=== PATIENT | male | born 1980 | race Caucasian/White ===

== ENCOUNTER 2019-06-21 22:14 | Emergency (ER) | payer MEDICAID, OTHER, SELFPAY ==
[~2019-06-21] VITALS: Ht 185.4 cm; Wt 105.0 kg
[2019-06-21 22:16] VITALS: BP 122/80
== END 2019-06-21 23:10 | disposition left against medical advice (07) ==
LOC: ED 23:04
DX: F10.120 Alcohol abuse with intoxication, uncomplicated (principal); Y90.9 Presence of alcohol in blood, level not specified
CPT/HCPCS: 99283

== ENCOUNTER 2019-06-22 03:01 | Emergency (ER) | payer MEDICAID ==
[~2019-06-22] VITALS: Ht 185.4 cm; Wt 101.4 kg
[2019-06-22 05:40] VITALS: BP 114/72
== END 2019-06-22 05:43 | disposition home or self-care (01) ==
LOC: ED 03:29
DX: F10.120 Alcohol abuse with intoxication, uncomplicated (principal); Z72.9 Problem related to lifestyle, unspecified
CPT/HCPCS: 99283

== ENCOUNTER 2019-11-17 18:37 | Emergency (ER) | payer MEDICAID ==
[~2019-11-17] VITALS: Ht 182.9 cm; Wt 90.9 kg
--- NOTE | 2019-11-17 18:45 | NUR ---
PT SHARLENE VANG FROM [place]. PER EMS PT WALKED INTO [place] C/O SI, TOLD THEM HE WANTED TO "BLOW MY BRAINS OUT". PT WAS PLACED ON A LEGAL HOLD. THEN PT C/O CHEST PAIN SO EMS WAS CALLED. PT BECAME AGITATED/AGGRESSIVE AT TIMES WITH STAFF AT [place] AND WITH EMS. PT A&OX4 BUT DOESN'T WANT TO ANSWER ALL QUESTIONS. VSS PER EMS. ALL BELONGINGS PLACED IN LOCKER AND ROOM STRIPPED. POC RV'WD WITH PT. SITTER OUTSIDE ROOM.
[2019-11-17 18:52] VITALS: BP 147/95
--- NOTE | 2019-11-17 19:15 | NUR ---
ERP AT NOW.
--- NOTE | 2019-11-17 19:34 | NUR ---
XR AT BS.
[2019-11-17 19:47] LABS: ALBUMIN 3.7 g/dL (3.4-5.0); ANION GAP 7 mmol/L (5-15); CALCIUM 7.7 mg/dL (8.5-10.1); CHLORIDE 109 mmol/L (98-107)
--- NOTE | 2019-11-17 19:48 | NUR ---
PT LYING ON HIS SIDE IN [place], CALM AT THIS TIME.
[2019-11-17 19:50] LABS: BASOPHILS # (AUTO) 0.04 x10^3/uL (0-0.1); BASOPHILS % (AUTO) 1 % (0-1); EOSINOPHILS # (AUTO) 0.08 x10^3/uL (0-0.4); EOSINOPHILS % (AUTO) 1 % (1-7); LYMPHOCYTES # (AUTO) 2.03 x10^3/uL (1-3.4); LYMPHOCYTES % (AUTO) 30 % (22-44); MD NO; MEAN CORPUSCULAR HEMOGLOBIN 26.4 pg (27.5-34.5); MEAN CORPUSCULAR HGB CONC 32.1 g/dL (33.2-36.2); MEAN CORPUSCULAR VOLUME 82.2 fL (81-97); MEAN PLATELET VOLUME 8.1 fL (7.4-10.4); MONOCYTES # (AUTO) 0.46 x10^3/uL (0.2-0.8); MONOCYTES % (AUTO) 7 % (2-9); NEUTROPHILS # (AUTO) 4.24 x10^3/uL (1.8-6.8); NEUTROPHILS % (AUTO) 62 % (42-75); PLATELET COUNT 276 x10^3/uL (130-400); RED BLOOD COUNT 6.46 x10^6/uL (4.38-5.82); RED CELL DISTRIBUTION WIDTH 13.7 % (9.4-14.8)
[2019-11-17 19:52] LABS: ALANINE AMINOTRANSFERASE 42 U/L (12-78); ALKALINE PHOSPHATASE 80 U/L (45-117); BILIRUBIN,TOTAL 0.3 mg/dL (0.2-1.0); CREATININE 1.39 mg/dL (0.7-1.3); SALICYLATE LEVEL < 1.7 mg/dL (2.8-20.0); TOTAL PROTEIN 7.6 g/dL (6.4-8.2); TROPONIN I < 0.015 ng/mL (0.000-0.045)
--- NOTE | 2019-11-17 20:13 | NUR ---
spoke to Moe on 3E pt needs a UDS and prior auth before being accepted
[2019-11-17 21:31] LABS: AMPHETAMINE SCREEN, URINE Negative (Negative); BARBITURATE SCREEN, URINE Negative (Negative); BENZODIAZEPINE SCREEN, URINE Negative (Negative); CANNABINOID SCREEN, URINE Negative (Negative); COCAINE SCREEN, URINE Negative (Negative); METHADONE SCREEN, URINE Negative (Negative); OPIATE SCREEN, URINE Positive (Negative)
--- NOTE | 2019-11-17 21:54 | NUR ---
REPEAT BREATHALYZER DONE. MORE SNACKS PROVIDED TO PT. NO OTHER NEEDS AT THIS TIME.
[2019-11-17] MEDS ORDERED: ATOM60CA PO (22:58)
[2019-11-17] MEDS ORDERED: ALPR1TAB2 PO (22:58)
[2019-11-17] MEDS ORDERED: ESCI20TA10 PO (22:58)
[2019-11-17] MEDS ORDERED: HYDR1TAB13 PO (22:58)
[2019-11-17] MEDS ORDERED: GABA600T7 PO (22:58)
[2019-11-17] MEDS ORDERED: CLON0.1T22 PO (22:58)
== END 2019-11-18 07:13 | disposition other institution (70) ==
LOC: ED 19:56 → UNDOADMIN 21:00 → 3E 21:00 → ED 11-18 07:13
DX: F10.129 Alcohol abuse with intoxication, unspecified (principal); F32.9 Major depressive disorder, single episode, unspecified
CPT/HCPCS: 36415; 71045; 80053; 80307; 84484; 85025; 93005; 99284

== ENCOUNTER 2019-11-17 21:54 | Inpatient (IN) | payer MEDICAID ==
[~2019-11-17] VITALS: Ht 182.9 cm; Wt 98.1 kg
[2019-11-17] MEDS ORDERED: POLYETHYLENE GLYCOL 17 GM PACKET PO PRN (22:00)
[2019-11-17] MEDS ORDERED: DOCUSATE 100 MG CAPSULE PO PRN (22:00)
[2019-11-17] MEDS ORDERED: ONDANSETRON ODT 4 MG PO PRN (22:00)
[2019-11-17] MEDS ORDERED: BISACODYL 10 MG SUPP PR PRN (22:00)
[2019-11-17] MEDS ORDERED: ALPR1TAB2 PO (22:58)
[2019-11-17] MEDS ORDERED: CLON0.1T22 PO (22:58)
[2019-11-17] MEDS ORDERED: ATOM60CA PO (22:58)
[2019-11-17] MEDS ORDERED: HYDR1TAB13 PO (22:58)
[2019-11-17] MEDS ORDERED: ESCI20TA10 PO (22:58)
[2019-11-17] MEDS ORDERED: GABA600T7 PO (22:58)
[2019-11-18] MEDS: LORazepam 1MG TABLET PO PRN ×4 (00:06→20:03)
[2019-11-18 00:34] VITALS: BP 154/76
[2019-11-18] MEDS ORDERED: TRAZODONE 100MG TABLET PO PRN (02:30)
[2019-11-18 06:24] LABS: ANION GAP 7 mmol/L (5-15); CALCIUM 8.2 mg/dL (8.5-10.1); CHLORIDE 107 mmol/L (98-107)
[2019-11-18 06:35] LABS: CHOL/HDL RATIO 4.3; CHOLESTEROL, TOTAL 177 mg/dL (140-239); CREATININE 1.31 mg/dL (0.7-1.3); FREE T4 (FREE THYROXINE) 0.86 ng/dL (0.76-1.46); HDL CHOL % 23 % (26-37); HDL CHOLESTEROL (DIRECT) 41 mg/dL (40-60); LDL CHOLESTEROL,CALCULATED 73 mg/dL (54-169); LDL/HDL RATIO 1.8 (0.5-3.0); TRIGLYCERIDES 316 mg/dL (50-200); VLDL CHOLESTEROL 63 mg/dL (0-25)
[2019-11-18 07:07] VITALS: BP 122/81
[2019-11-18] MEDS ORDERED: LORazepam 1MG TABLET PO ONE (07:30)
[2019-11-18] MEDS: THIAMINE 100MG TABLET PO SCH (09:05)
[2019-11-18] MEDS: FOLIC ACID 1 MG TABLET PO SCH (09:05)
[2019-11-18] MEDS: NICOTINE 21 MG/24 HR PATCH.TD24 TD SCH (09:06)
[2019-11-18] MEDS: BUPRENORPHINE/NALOXONE 2-0.5MG SL SCH ×3 (14:18→22:11)
[2019-11-18] MEDS: ESCITALOPRAM 10MG TABLET PO SCH (14:18)
[2019-11-18] MEDS: ACAMPROSATE 333 MG TABLET.DR PO SCH ×2 (16:21→20:02)
[2019-11-18 19:05] VITALS: BP 164/97
[2019-11-18] MEDS: BUSPIRONE 10 MG TABLET PO SCH (20:02)
[2019-11-18] MEDS: GABAPENTIN 300 MG CAPSULE PO SCH (20:02)
[2019-11-18 22:39] VITALS: BP 150/80
[2019-11-19 07:47] VITALS: BP 120/73
[2019-11-19] MEDS: ACAMPROSATE 333 MG TABLET.DR PO SCH ×3 (08:45→20:26)
[2019-11-19] MEDS: BUSPIRONE 10 MG TABLET PO SCH ×2 (08:45→20:26)
[2019-11-19] MEDS: ESCITALOPRAM 10MG TABLET PO SCH (08:45)
[2019-11-19] MEDS: THIAMINE 100MG TABLET PO SCH (08:45)
[2019-11-19] MEDS: NICOTINE 21 MG/24 HR PATCH.TD24 TD SCH (08:46)
[2019-11-19] MEDS: FOLIC ACID 1 MG TABLET PO SCH (08:46)
[2019-11-19] MEDS: BUPRENORPHINE/NALOXONE 2-0.5MG SL SCH ×3 (08:46→21:29)
[2019-11-19 10:49] LABS: MICROSCOPIC NOT IND
[2019-11-19] MEDS: LORazepam 1MG TABLET PO PRN ×3 (10:54→20:45)
[2019-11-19 11:01] LABS: CULTURE INDICATED? NO
[2019-11-19] MEDS ORDERED: BUPRENORPHINE/NALOXONE 2-0.5MG SL SCH (18:00)
[2019-11-19 19:30] VITALS: BP 154/86
[2019-11-19] MEDS: GABAPENTIN 300 MG CAPSULE PO SCH (20:27)
[2019-11-20 07:38] VITALS: BP 112/65
[2019-11-20] MEDS: NICOTINE 21 MG/24 HR PATCH.TD24 TD SCH (08:56)
[2019-11-20] MEDS: FOLIC ACID 1 MG TABLET PO SCH (08:56)
[2019-11-20] MEDS: THIAMINE 100MG TABLET PO SCH (08:56)
[2019-11-20] MEDS: ACAMPROSATE 333 MG TABLET.DR PO SCH ×3 (08:57→20:07)
[2019-11-20] MEDS: BUSPIRONE 10 MG TABLET PO SCH ×2 (08:58→20:07)
[2019-11-20] MEDS: ESCITALOPRAM 10MG TABLET PO SCH (08:58)
[2019-11-20] MEDS: LORazepam 1MG TABLET PO PRN ×2 (09:05→18:33)
[2019-11-20] MEDS ORDERED: BUPRENORPHINE/NALOXONE 2-0.5MG SL SCH (10:30)
[2019-11-20] MEDS: NICOTINE GUM 2 MG BC PRN ×3 (15:11→20:54)
[2019-11-20] MEDS: BUPRENORPHINE/NALOXONE 2-0.5MG SL SCH ×2 (18:16→20:07)
[2019-11-20 20:05] VITALS: BP_SYST 171; BP_DIAS 74; BP_DIAS 80
[2019-11-20] MEDS: ACETAMINOPHEN 325 MG TABLET PO PRN (20:07)
[2019-11-20] MEDS: GABAPENTIN 300 MG CAPSULE PO SCH (20:07)
[2019-11-21] MEDS: LORazepam 1MG TABLET PO PRN ×4 (01:15→19:48)
[2019-11-21] MEDS: NICOTINE GUM 2 MG BC PRN ×5 (04:43→19:25)
[2019-11-21 07:50] VITALS: BP 128/75
[2019-11-21] MEDS: FOLIC ACID 1 MG TABLET PO SCH (08:36)
[2019-11-21] MEDS: BUSPIRONE 10 MG TABLET PO SCH ×2 (08:36→19:48)
[2019-11-21] MEDS: ESCITALOPRAM 10MG TABLET PO SCH (08:36)
[2019-11-21] MEDS: ACAMPROSATE 333 MG TABLET.DR PO SCH ×3 (08:36→19:49)
[2019-11-21] MEDS: BUPRENORPHINE/NALOXONE 2-0.5MG SL SCH (08:37)
[2019-11-21] MEDS: THIAMINE 100MG TABLET PO SCH (08:37)
[2019-11-21] MEDS: ACETAMINOPHEN 325 MG TABLET PO PRN (19:48)
[2019-11-21] MEDS: GABAPENTIN 300 MG CAPSULE PO SCH (19:48)
[2019-11-21 19:57] VITALS: BP 171/124
[2019-11-21] MEDS ORDERED: METHOCARBAMOL 500 MG TABLET PO ONE (21:00)
[2019-11-22] MEDS: NICOTINE GUM 2 MG BC PRN ×6 (00:28→23:28)
[2019-11-22 00:30] VITALS: BP 142/93
[2019-11-22 07:23] VITALS: BP 126/81
[2019-11-22] MEDS: BUSPIRONE 10 MG TABLET PO SCH ×2 (08:31→20:13)
[2019-11-22] MEDS: FOLIC ACID 1 MG TABLET PO SCH (08:31)
[2019-11-22] MEDS: ACAMPROSATE 333 MG TABLET.DR PO SCH ×3 (08:31→20:12)
[2019-11-22] MEDS: ESCITALOPRAM 10MG TABLET PO SCH (08:31)
[2019-11-22] MEDS: THIAMINE 100MG TABLET PO SCH (08:31)
[2019-11-22] MEDS ORDERED: BUPRENORPHINE/NALOXONE 2-0.5MG SL SCH (09:00)
[2019-11-22] MEDS: LORazepam 1MG TABLET PO PRN ×3 (09:46→20:12)
[2019-11-22] MEDS ORDERED: ACAM333T7 PO (13:31)
[2019-11-22] MEDS ORDERED: ESCI10TA PO (13:31)
[2019-11-22] MEDS ORDERED: CLON0.1T22 PO (13:31)
[2019-11-22] MEDS ORDERED: GABA300C10 PO (13:31)
[2019-11-22] MEDS ORDERED: BUSP10TA PO (13:31)
[2019-11-22] MEDS ORDERED: BUPRENORPHINE/NALOXONE 2-0.5MG SL ONE (18:00)
[2019-11-22 19:36] VITALS: BP 167/85
[2019-11-22] MEDS: GABAPENTIN 300 MG CAPSULE PO SCH (20:13)
[2019-11-23 07:25] VITALS: BP 136/86
[2019-11-23] MEDS: ACAMPROSATE 333 MG TABLET.DR PO SCH ×3 (08:57→20:19)
[2019-11-23] MEDS: BUSPIRONE 10 MG TABLET PO SCH ×2 (08:57→20:19)
[2019-11-23] MEDS: FOLIC ACID 1 MG TABLET PO SCH (08:57)
[2019-11-23] MEDS: LORazepam 1MG TABLET PO PRN ×4 (08:58→20:46)
[2019-11-23] MEDS: ESCITALOPRAM 10MG TABLET PO SCH (08:58)
[2019-11-23] MEDS: THIAMINE 100MG TABLET PO SCH (08:58)
[2019-11-23] MEDS: NICOTINE GUM 2 MG BC PRN ×4 (08:59→20:20)
[2019-11-23] MEDS: BUPROPION SR 150 MG TABLET PO SCH (10:59)
[2019-11-23 19:21] VITALS: BP 138/80
[2019-11-23] MEDS: GABAPENTIN 300 MG CAPSULE PO SCH (20:19)
[2019-11-23] MEDS ORDERED: METHOCARBAMOL 500 MG TABLET PO ONE (20:30)
[2019-11-24 07:15] VITALS: BP 135/83
[2019-11-24] MEDS: ESCITALOPRAM 10MG TABLET PO SCH (08:36)
[2019-11-24] MEDS: FOLIC ACID 1 MG TABLET PO SCH (08:36)
[2019-11-24] MEDS: THIAMINE 100MG TABLET PO SCH (08:36)
[2019-11-24] MEDS: BUPROPION SR 150 MG TABLET PO SCH (08:36)
[2019-11-24] MEDS: BUSPIRONE 10 MG TABLET PO SCH ×2 (08:36→19:45)
[2019-11-24] MEDS: ACAMPROSATE 333 MG TABLET.DR PO SCH ×3 (08:36→19:46)
[2019-11-24] MEDS: LORazepam 1MG TABLET PO PRN ×3 (08:45→19:52)
[2019-11-24] MEDS: ACETAMINOPHEN 325 MG TABLET PO PRN (08:45)
[2019-11-24] MEDS: NICOTINE GUM 2 MG BC PRN ×5 (09:03→19:45)
[2019-11-24] MEDS ORDERED: BUPRENORPHINE/NALOXONE 2-0.5MG SL ONE (12:30)
[2019-11-24 19:37] VITALS: BP 114/74
[2019-11-24] MEDS: GABAPENTIN 300 MG CAPSULE PO SCH (19:45)
== END 2019-11-24 20:27 | disposition home or self-care (01) | DRG 885 ==
LOC: 3E 23:28
PROVIDERS: ADMIT Psychiatry & Neurology Psychosomatic Medicine; ATTEND Psychiatry & Neurology Psychosomatic Medicine
DX: F33.2 Major depressive disorder, recurrent severe without psychotic features (principal); R45.851 Suicidal ideations; F10.230 Alcohol dependence with withdrawal, uncomplicated; F11.20 Opioid dependence, uncomplicated; K59.00 Constipation, unspecified; M54.9 Dorsalgia, unspecified; G89.29 Other chronic pain; G47.00 Insomnia, unspecified; K21.9 Gastro-esophageal reflux disease without esophagitis; F17.210 Nicotine dependence, cigarettes, uncomplicated; F41.1 Generalized anxiety disorder; I10 Essential (primary) hypertension; F98.8 Other specified behavioral and emotional disorders with onset usually occurring in childhood and adolescence; Z88.2 Allergy status to sulfonamides; Z59.0 Homelessness; Z91.19 Patient's noncompliance with other medical treatment and regimen; Z79.899 Other long term (current) drug therapy
CPT/HCPCS: J0572 ×6

== ENCOUNTER 2019-12-13 09:49 | Emergency (ER) | payer MEDICAID ==
[~2019-12-13] VITALS: Ht 185.4 cm; Wt 99.1 kg
[~2019-12-13 09:49] MED LIST: ACAM333T7 PO; ALPR1TAB2 PO; ATOM60CA PO; BUSP10TA PO; CLON0.1T22 PO; ESCI10TA PO; ESCI20TA10 PO; GABA300C10 PO; GABA600T7 PO; HYDR1TAB13 PO
--- NOTE | 2019-12-13 10:55 | NUR ---
REPORT GIVEN TO GLENN
--- NOTE | 2019-12-13 10:57 | NUR ---
PT REPORT FROM MATTHEW PENA. PT CARE TO BE ASSUMED. PT AMBULATORY FROM [facility] TO ROOM W/OUT INCIDENT; GAIT STEADY; VOIDED SPECIMEN WAS PROVIDED. BEHAVIORAL HEALTH RN IN ROOM W/ PT FOR EVAL. PT'S FEMALE FRIEND IN ROOM.
[2019-12-13 11:21] LABS: BASOPHILS # (AUTO) 0.04 x10^3/uL (0-0.1); BASOPHILS % (AUTO) 1 % (0-1); EOSINOPHILS # (AUTO) 0.06 x10^3/uL (0-0.4); EOSINOPHILS % (AUTO) 1 % (1-7); LYMPHOCYTES # (AUTO) 1.21 x10^3/uL (1-3.4); LYMPHOCYTES % (AUTO) 26 % (22-44); MD NO; MEAN CORPUSCULAR HEMOGLOBIN 26.4 pg (27.5-34.5); MEAN CORPUSCULAR HGB CONC 32.8 g/dL (33.2-36.2); MEAN CORPUSCULAR VOLUME 80.4 fL (81-97); MEAN PLATELET VOLUME 8.1 fL (7.4-10.4); MONOCYTES # (AUTO) 0.48 x10^3/uL (0.2-0.8); MONOCYTES % (AUTO) 10 % (2-9); NEUTROPHILS # (AUTO) 2.84 x10^3/uL (1.8-6.8); NEUTROPHILS % (AUTO) 61 % (42-75); PLATELET COUNT 289 x10^3/uL (130-400); RED BLOOD COUNT 6.43 x10^6/uL (4.38-5.82); RED CELL DISTRIBUTION WIDTH 14.8 % (9.4-14.8)
[2019-12-13] MEDS ORDERED: hydrOXyzine 50MG TABLET ONE (11:25)
[2019-12-13 11:28] LABS: ALANINE AMINOTRANSFERASE 30 U/L (12-78); ALBUMIN 3.7 g/dL (3.4-5.0); ANION GAP 7 mmol/L (5-15); CHLORIDE 106 mmol/L (98-107); CREATININE 1.55 mg/dL (0.7-1.3)
--- NOTE | 2019-12-13 11:28 | NUR ---
PT BE POSSIBLE VOLUNTARY ADMIT TO UNIT. RESTING QUIETLY ON BED, RESP EVEN & UNLABORED, SPEECH CLEAR, SKIN WNL. PT REPORTS DETOXING FROM ALCOHOL, SI, ANIEXTY, DEPRESSION; "IT'S BEEN GOING ON FOR AWHILE". LAST ALCOHOL INTAKE: LAST NOC - VODKA "A COUPLE PINTS". DAILY ETOH INTAKE. SI "LIKE JUMPING THROUGH A WINDOW" "I'VE BEEN THINKING ABOUT IT EVERY DAY" "FOR 7 DAYS, EVER SINCE I STARTED DRINKING AGAIN" "GOING THROUGH A REALLY HARD TIME, MENTAL HEALTH SPENCER, BECAUSE I WASN'T ON THE RIGHT MEDICATION"
[2019-12-13 11:30] LABS: ALKALINE PHOSPHATASE 74 U/L (45-117); BILIRUBIN,TOTAL 0.7 mg/dL (0.2-1.0); TOTAL PROTEIN 7.6 g/dL (6.4-8.2)
[2019-12-13] MEDS ORDERED: HYDROXYZINE PAMOATE 50MG CAP PO ONE (11:30)
[2019-12-13 11:31] LABS: SALICYLATE LEVEL < 1.7 mg/dL (2.8-20.0)
[2019-12-13 11:33] LABS: MICROSCOPIC NOT IND
[2019-12-13] MEDS ORDERED: OMEP20TA62 PO (11:37)
--- NOTE | 2019-12-13 11:38 | NUR ---
PT REQUESTING NICOTINE PATCH. PROVIDER WILL BE NOTIFIED.
--- NOTE | 2019-12-13 11:39 | NUR ---
HYDROXYZINE 50MG PO GIVEN PER EMAR. PT REQUESTING ATIVAN. INFORMED PT THAT ATIVAN WAS NOT ORDERED. DISCUSSED HYDROXYZINE W/ PT AND GIRLFRIEND. GIRLFRIEND STATES PT IS "FAMILIAR WITH HYDROXYZINE, BUT IS FAMILIAR WITH ATIVAN, SO HE DOESN'T KNOW HOW IT WORKS."
[2019-12-13 11:46] LABS: AMPHETAMINE SCREEN, URINE Negative (Negative); BARBITURATE SCREEN, URINE Negative (Negative); BENZODIAZEPINE SCREEN, URINE Negative (Negative); CANNABINOID SCREEN, URINE Positive (Negative); COCAINE SCREEN, URINE Negative (Negative); METHADONE SCREEN, URINE Negative (Negative); OPIATE SCREEN, URINE Negative (Negative)
--- NOTE | 2019-12-13 12:01 | NUR ---
PT LYING QUIETLY ON BED, RESP EVEN & UNLABORED, SPEECH CLEAR & EVEN. C/O "SEVERE ANXIETY" REQUESTING "SOMETHING TO HELP" SPECIFIED "ATIVAN". INFORMED PT THAT ORAL MEDICATIONS DO NOT WORK IMMEDIATELY, BUT THAT I WILL INFORM PROVIDER OF PT'S REQUEST.
--- NOTE | 2019-12-13 12:15 | NUR ---
GIRLFRIEND: JORDAN CANO ( 09/26/1968) CELL [id number], WK [phone]. WOULD LIKE TO BE NOTIFIED IF PT IS ADMITTED TO [facility] OR ANOTHER FACILITY. INFORMED JORDAN SHE COULD BE NOTIFIED W/ PT'S PERMISSION.
--- NOTE | 2019-12-13 12:45 | NUR ---
THROUGHPUT RN: MARY LOU WITH [facility] DENIED PT- STATES DR. Long WILL NOT ACCEPT.
--- NOTE | 2019-12-13 12:52 | NUR ---
LUNCH TRAY ORDERED.
[2019-12-13] MEDS ORDERED: LORazepam 1MG TABLET PO ONE (13:00)
[2019-12-13] MEDS ORDERED: LORazepam 1MG TABLET ONE (13:16)
--- NOTE | 2019-12-13 13:21 | NUR ---
ATIVAN GIVEN PER EMAR. PT TO BE PLACED ON LEGAL HOLD. SITTER OUTSIDE DOOR.
--- NOTE | 2019-12-13 13:30 | NUR ---
PT REQUESTING NEW LUNCH TRAY W/OUT DAIRY OR MAYONNAISE. PT REPORT GI DISTRESS FROM BOTH.
--- NOTE | 2019-12-13 13:45 | NUR ---
THROUGHPUT RN: PACKET MADE- FAXED TO [facility], CALIN GARCIAS, AND [facility].
--- NOTE | 2019-12-13 13:58 | NUR ---
RESTING ON BED W/ ROOM LIGHTS OFF.
--- NOTE | 2019-12-13 14:05 | NUR ---
NEW LUNCH TRAY ORDERED - REQUESTED NO DAIRY, NO MAYONNAISE.
--- NOTE | 2019-12-13 14:24 | NUR ---
DOMONIQUE FROM [facility] CALLED, PT ACCEPTED AT [facility]. PHYSICIAN: DR PRESTON.
--- NOTE | 2019-12-13 14:40 | NUR ---
NEW LUNCH TRAY DELIVERED TO PT. PT RESTING QUIETLY IN ROOM.
--- NOTE | 2019-12-13 15:09 | NUR ---
THROUGHPUT RN: GALLITO HERNANDEZ AT [facility], PT WILL BE ACCEPTED HERE. ASKING THAT PT ARRIVE AT APPROX 1700. ACCEPTING MD DR. PRESTON.
[2019-12-13] MEDS ORDERED: GABAPENTIN 300 MG CAPSULE ONE (15:10)
--- NOTE | 2019-12-13 15:12 | NUR ---
GABAPENTIN GIVEN PER EMAR
--- NOTE | 2019-12-13 15:24 | NUR ---
CAMPRAL 666MG PO ORDERED FROM PHARMACY. PT AWARE OF PENDING TRANSFER TO [facility].
--- NOTE | 2019-12-13 15:52 | NUR ---
PT LYING QUIETLY ON BED, STATES HE'S TALKING TO GIRLFRIEND ON HIS CELL PHONE, NOTIFIED PERSON THAT HE'D BE GOING TO [facility]. PT REQUESTING MORE ATIVAN. STATES "I JUST CAN'T STAY STILL AND I'M GOING CRAZY". WILL NOTIFY ERP
[2019-12-13] MEDS ORDERED: ACAMPROSATE 333 MG TABLET.DR PO SCH (16:00)
[2019-12-13] MEDS ORDERED: GABAPENTIN 300 MG CAPSULE PO ONE (16:00)
--- NOTE | 2019-12-13 16:43 | NUR ---
PT REPORT GIVEN TO [facility].
--- NOTE | 2019-12-13 16:45 | NUR ---
THROUGHPUT RN: GALLITO BIRD AT [facility] UNABLE TO HELP WITH TRANSPORT. PER CIERA, PT WILL BE PICKED UP AT 1700.
--- NOTE | 2019-12-13 16:50 | NUR ---
PT DOZING ON BED. RESP EVEN & UNLABORED.
--- NOTE | 2019-12-13 18:00 | NUR ---
[facility] HERE FOR PT TRANSPORT TO [facility].
--- NOTE | 2019-12-13 18:02 | NUR ---
PT SLEEPING; EASILY AWAKENED. NOTIFIED OF PENDING TRANSFER.
[2019-12-13 18:05] VITALS: BP 116/62
[2019-12-13] MEDS ORDERED: BUSPIRONE 10 MG TABLET PO SCH (21:00)
[2019-12-14] MEDS ORDERED: ESCITALOPRAM 10MG TABLET PO SCH (09:00)
== END 2019-12-13 18:15 ==
LOC: ED 11:28
DX: F32.9 Major depressive disorder, single episode, unspecified (principal); R45.851 Suicidal ideations
CPT/HCPCS: 36415; 80053; 80307; 81003; 85025; 99285

== ENCOUNTER 2020-04-16 09:03 | Emergency (ER) | payer MEDICAID ==
[~2020-04-16] VITALS: Ht 185.4 cm; Wt 95.5 kg
[~2020-04-16 09:03] MED LIST changes: +OMEP20TA62 PO
--- NOTE | 2020-04-16 09:22 | NUR ---
PT AMBULATED TO THE ROOM FROM TRIAGE W/ A STEADY GAIT AT THIS TIME.
--- NOTE | 2020-04-16 09:38 | NUR ---
THIS IS A 39 YO M W/ C/O RACING HEART AND LOW BACK/FLANK PAIN. PT REPORTS HE HAS BEEN USING METH AND DRINKING ABOUT 1 PINT/DAY FOR THE PAST 3-4 DAYS. LAST DRINK WAS AT 0500 TODAY 1/2 PINT. PT IS ANXIOUS AND RESTLESS. TACYCARDIC, OTHER VS WDL. RESTING ON GURNEY W/ CALL LIGHT IN REACH AND FAMILY AT BEDSIDE. CONNECTED TO MONITORING. URINE COLLECTED AND SENT TO LAB. AWAITING ORDERS.
--- NOTE | 2020-04-16 10:00 | NUR ---
LAB IN ROOM.
[2020-04-16 10:51] LABS: ALANINE AMINOTRANSFERASE 46 U/L (12-78); ALBUMIN 3.9 g/dL (3.4-5.0); ANION GAP 10 mmol/L (5-15); BASOPHILS # (AUTO) 0.04 x10^3/uL (0-0.1); BASOPHILS % (AUTO) 1 % (0-1); CALCIUM 8.6 mg/dL (8.5-10.1); CHLORIDE 104 mmol/L (98-107); CREATININE 1.64 mg/dL (0.7-1.3); EOSINOPHILS # (AUTO) 0.01 x10^3/uL (0-0.4); EOSINOPHILS % (AUTO) 0 % (1-7); LYMPHOCYTES # (AUTO) 1.66 x10^3/uL (1-3.4); LYMPHOCYTES % (AUTO) 28 % (22-44); MD NO; MEAN CORPUSCULAR HEMOGLOBIN 27.7 pg (27.5-34.5); MEAN CORPUSCULAR HGB CONC 32.9 g/dL (33.2-36.2); MEAN CORPUSCULAR VOLUME 84.1 fL (81-97); MEAN PLATELET VOLUME 7.9 fL (7.4-10.4); MONOCYTES # (AUTO) 0.72 x10^3/uL (0.2-0.8); MONOCYTES % (AUTO) 12 % (2-9); NEUTROPHILS # (AUTO) 3.54 x10^3/uL (1.8-6.8); NEUTROPHILS % (AUTO) 59 % (42-75); PLATELET COUNT 326 x10^3/uL (130-400); RED BLOOD COUNT 6.27 x10^6/uL (4.38-5.82); RED CELL DISTRIBUTION WIDTH 15.4 % (9.4-14.8)
[2020-04-16 10:56] LABS: ALKALINE PHOSPHATASE 82 U/L (45-117); BILIRUBIN,TOTAL 0.7 mg/dL (0.2-1.0); TOTAL PROTEIN 7.7 g/dL (6.4-8.2); TROPONIN I < 0.015 ng/mL (0.000-0.045)
--- NOTE | 2020-04-16 10:59 | NUR ---
ALL TESTS RESULTED. PT IS UP FOR RECHECK AT THIS TIME.
[2020-04-16] MEDS ORDERED: LORazepam 1MG TABLET ONE (11:19)
[2020-04-16 11:21] VITALS: BP 146/93
[2020-04-16] MEDS ORDERED: LORazepam 1MG TABLET PO ONE (11:30)
--- NOTE | 2020-04-16 11:33 | NUR ---
Patient given discharge instructions and they have confirmed that they understand the instructions. Patient ambulatory with steady gait. Being drive home by friend.
== END 2020-04-16 11:34 | disposition home or self-care (01) ==
LOC: ED 10:19
DX: F41.1 Generalized anxiety disorder (principal); F15.10 Other stimulant abuse, uncomplicated; R07.89 Other chest pain; R10.9 Unspecified abdominal pain; R45.1 Restlessness and agitation
CPT/HCPCS: 36415; 71045; 80053; 83690; 84484; 85025; 93005; 99285; Q0177